=== PATIENT | male | born 1945 | race Caucasian/White ===

== ENCOUNTER 2021-09-06 19:16 | Observation (INO) | payer OTHER ==
[2021-09-06] MEDS ORDERED: NA CHLORIDE 0.9% 500 ML ONE (19:45)
[2021-09-06 20:18] LABS: Absolute Lymphocytes (CBC) 1.4 K/uL (0.7-4.9); Hematocrit 41.2 % (39.6-49.0); Lymphocytes % 22.7 % (15.3-44.8); MCV 91.4 fL (80-100); MPV 7.2 fL (7.6-11.3); RBC Red Blood Cell Count 4.51 M/uL (4.33-5.43)
--- NOTE | 2021-09-06 20:26 | RAD REPORT ---
EXAM DESCRIPTION: RAD - Chest Single View - 09/06/2021 8:14 pm CLINICAL HISTORY: near syncope Chest pain. COMPARISON: Chest Pa And Lat (2 Views) dated 11/04/2020 FINDINGS: Portable technique limits examination quality. The lungs are grossly clear. The heart is normal in size. No displaced fractures. IMPRESSION: No acute intrathoracic process suspected.
[2021-09-06 20:28] LABS: Protime INR 1.14
[2021-09-06 20:37] LABS: Potassium 3.8 mmol/L (3.5-5.1); Troponin High Sensitivity 6.2 pg/mL (<58.9)
--- NOTE | 2021-09-06 21:06 | RAD REPORT ---
EXAM DESCRIPTION: CT - Head Brain Wo Cont - 09/06/2021 8:57 pm CLINICAL HISTORY: near syncope, hx of TIA Headache, drowsiness, near-syncope COMPARISON: No comparisons TECHNIQUE: All CT scans are performed using dose optimization technique as appropriate and may inclu de automated exposure control or mA/KV adjustment according to patient size. FINDINGS: No intracranial hemorrhage, hydrocephalus or extra-axial fluid collection.Mild to moderate generalized brain atrophyNo areas of brain edema or evidence of midline shift. The paranasal sinuses and mastoids are clear. The calvarium is intact. IMPRESSION: No acute intracranial abnormality.
[2021-09-06 21:17] LABS: Urine Blood Negative (Negative); Urine Glucose Negative (Negative); Urine Protein Negative (Negative); Urine Specific Gravity 1.015 (1.005-1.030)
[2021-09-06 21:45] LABS: Urine Bacteria <20 /HPF (NONE SEEN); Urine RBC NONE SEEN /HPF (NONE SEEN)
--- NOTE | 2021-09-06 21:45 | ER ---
Nurse's Notes [facility] Name: Dany Hoang Jr Age: 76 yrs Sex: Male : 1945 Arrival Date: 09/06/2021 Time: 19:23 Bed 15 Private MD: Diagnosis: Syncope Near;Dehydration;Muscle weakness (generalized) Presentation: 09/06 19:23 Chief complaint: EMS states: toned out for near syncopal episodes. pt states he had a lg3 several episode of generalized weakness today. first episode being this morning. it resolved but had another similar episode this after noon and then again about an hour LIGHT BULB TESTER. denies any LOC. EMS states that pt had an episode of v tach and v fib shortly after getting patient into ambulance but converted shortly after. Coronavirus screen: Client denies travel out of the [place] in the last 14 days. At this time, the client does not indicate any symptoms associated with coronavirus-19. Ebola Screen: No symptoms or risks identified at this time. Initial Sepsis Screen: Does the patient meet any 2 criteria? No. Patient's initial sepsis screen is negative. Does the patient have a suspected source of infection? No. Patient's initial sepsis screen is negative. Risk Assessment: Do you want to hurt yourself or someone else? Patient reports no desire to harm self or others. Onset of symptoms was September 06, 2021. 19:23 Method Of Arrival: EMS: [facility] lg3 19:23 Acuity: ZAFAR 3 lg3 Triage Assessment: 19:28 General: Appears in no apparent distress. comfortable, Behavior is calm, cooperative. lg3 Pain: Denies pain. EENT: No deficits noted. No signs and/or symptoms were reported regarding the EENT system. Neuro: No deficits noted. Level of Consciousness is awake, alert, obeys commands, Oriented to person, place, time, situation. Cardiovascular: No deficits noted. Denies chest pain, shortness of breath, Capillary refill < 3 seconds Clubbing of nail beds is absent JVD is absent Patient's skin is warm and dry. Rhythm is sinus rhythm. Respiratory: No deficits noted. Airway is patent Trachea midline Respiratory effort is even, unlabored, Respiratory pattern is regular, symmetrical, Breath sounds are clear bilaterally. GI: No deficits noted. No signs and/or symptoms were reported involving the gastrointestinal system. Abdomen is flat, non-distended, Abd is soft and non tender X 4 quads. : No deficits noted. No signs and/or symptoms were reported regarding the genitourinary system. Derm: No deficits noted. No signs and/or symptoms reported regarding the dermatologic system. Skin is intact, is healthy with good turgor, Skin is dry, Skin temperature is warm. Musculoskeletal: No deficits noted. No signs and/or symptoms reported regarding the musculoskeletal system. Circulation, motion, and sensation intact. Range of motion: intact in all extremities, Reports generalized weakness. Historical: - Allergies: 19:28 No Known Allergies; lg3 - Home Meds: 19:28 Plavix Oral [Active]; levothyroxine oral [Active]; Lipitor Oral [Active]; lg3 - PMHx: 19:28 a fib; right bundle branch block; mini stroke; high cholesterol; thyroid; lg3 - PSHx: 19:28 None; lg3 - Immunization history:: Adult Immunizations up to date, Client reports having NOT received the Covid vaccine. - Social history:: Smoking status: Patient denies any tobacco usage or history of. Patient/guardian denies using alcohol, street drugs. - Family history:: not pertinent. - Hospitalizations: : No recent hospitalization is reported. Screenin:35 Abuse screen: Denies threats or abuse. Denies injuries from another. Nutritional lg3 screening: No deficits noted. Tuberculosis screening: No symptoms or risk factors identified. Fall Risk None identified. Assessment: 19:35 General: see triage assessment . lg3 21:17 Reassessment: Patient appears in no apparent distress at this time. No changes from lg3 previously documented assessment. Patient and/or family updated on plan of care and expected duration. Pain level reassessed. Patient is alert, oriented x 3, equal unlabored respirations, skin warm/dry/pink. 23:43 Reassessment: Patient appears in no apparent distress at this time. No changes from lg3 previously documented assessment. Patient and/or family updated on plan of care and expected duration. Pain level reassessed. Patient is alert, oriented x 3, equal unlabored respirations, skin warm/dry/pink. Patient states feeling better. Vital Signs: 19:23 BP 165 / 86; Pulse 67; Resp 19 S; Temp 98.2(O); Pulse Ox 98% on R/A; Weight 74.84 kg lg3 (R); Height 5 ft. 7 in. (170.18 cm) (R); Pain 0/10; 21:17 BP 158 / 87; Pulse 61; Resp 16 S; Pulse Ox 97% on R/A; lg3 19:23 Body Mass Index 25.84 (74.84 kg, 170.18 cm) lg3 ED Course: 19:23 Patient arrived in ED. rn 19:23 Casey Madrigal MD is Attending Physician. rn 19:23 Anca Arango, OLGA is Primary Nurse. lg3 19:28 Triage completed. lg3 19:28 Arm band placed on right wrist. lg3 19:35 Patient has correct armband on for positive identification. Placed in gown. Bed in low lg3 position. Call light in reach. Side rails up X2. Client placed on continuous cardiac and pulse oximetry monitoring. NIBP monitoring applied. oyster cultivator on. Door closed. Noise minimized. Warm blanket given. Family accompanied patient. 19:35 Maintain EMS IV. Dressing intact. Good blood return noted. Site clean \\T\\ dry. Gauge \\T\\ lg 3 site: 20G left AC. 20:05 Basic Metabolic Panel Sent. lg3 20:05 CBC with Diff Sent. lg3 20:05 NT PRO-BNP Sent. lg3 20:05 PT-INR Sent. lg3 20:05 Troponin HS Sent. lg3 20:05 COVID swab sent to lab. wm 20:05 Inserted saline lock: 20 gauge in left forearm, using aseptic technique. Blood lg3 collected. 20:06 SARS-COV-2 RT PCR (Document "Date of Onset" if Symptomatic) Sent. wm 20:15 XRAY Chest (1 view) In Process Unspecified. EDMS 20:59 CT Head Brain wo Cont In Process Unspecified. EDMS 21:16 Urine Microscopic Only Sent. lg3 21:44 Esa Peace MD is Hospitalizing Provider. rn 09/07 00:34 No provider procedures requiring assistance completed. Patient admitted, IV remains in lg3 place. intact, No redness/swelling at site. Administered Medications: 09/06 20:05 Drug: NS 0.9% 500 ml Route: IV; Rate: bolus; Site: left forearm; lg3 21:16 Follow up: IV Status: Completed infusion; IV Intake: 500ml lg3 Medication: 09/07 00:35 VIS not applicable for this client. lg3 Intake: 09/06 21:16 IV: 500ml; Total: 500ml. lg3 Outcome: 21:45 Decision to Hospitalize by Provider. olga 09/07 00:34 Admitted to Med/surg accompanied by tech, via wheelchair, room 204, Report called to 3 Tamara Condition: stable Instructed on the need for admit, Demonstrated understanding of instructions. 01:07 Patient left the ED. vc1 Signatures: Dispatcher [employer] EDMS Casey Madrigal MD MD rn Gibson, Lacie, RN RN lg3 Monica Jimenez Vanessa RN RN vc1
--- NOTE | 2021-09-06 21:45 | EDPHYS ---
Physician Documentation [facility] Name: Dany Hoang Jr Age: 76 yrs Sex: Male : 1945 Arrival Date: 09/06/2021 Time: 19:23 Bed 15 Private MD: ED Physician Casey Madrigal HPI: 09/06 20:15 This 76 yrs old Male presents to ER via EMS with complaints of near syncope, rn generalized weakness. 20:15 The patient has experienced near-syncope. Onset: The symptoms/episode began/occurred rn this morning. Duration: The patient has had multiple episodes. Context: occurred at home, occurred while the patient was at rest. Associated injury: The patient did not suffer any apparent associated injury. Current symptoms: generalized weakness. The patient has not experienced similar symptoms in the past. The patient has not recently seen a physician. Pt reports 2 episodes since this AM, woke up and felt "weak all over", lasted less than 1 minute, felt lightheaded and dizzy. Got better on its own, but happened again about 1 hour prior to arrival. Was seated and at rest, felt generalized weakness, malaise, tried to walk it off but felt like might pass out, was using wall as brace, sat back down and didn't go away, called 911. EMS does report an episode of Vtach on their monitor, had to stop on side of road, placed on pads, shortly resolved without intervention.. Historical: - Allergies: 19:28 No Known Allergies; lg3 - Home Meds: 19:28 Plavix Oral [Active]; levothyroxine oral [Active]; Lipitor Oral [Active]; lg3 - PMHx: 19:28 a fib; right bundle branch block; mini stroke; high cholesterol; thyroid; lg3 - PSHx: 19:28 None; lg3 - Immunization history:: Adult Immunizations up to date, Client reports having NOT received the Covid vaccine. - Social history:: Smoking status: Patient denies any tobacco usage or history of. Patient/guardian denies using alcohol, street drugs. - Family history:: not pertinent. - Hospitalizations: : No recent hospitalization is reported. ROS: 20:15 Constitutional: Negative for fever, chills, and weight loss, Eyes: Negative for injury, rn pain, redness, and discharge, Neck: Negative for injury, pain, and swelling, Cardiovascular: Negative for chest pain, palpitations, and edema, Respiratory: Negative for shortness of breath, cough, wheezing, and pleuritic chest pain, Abdomen/GI: Negative for abdominal pain, nausea, vomiting, diarrhea, and constipation, Back: Negative for injury and pain, MS/Extremity: Negative for injury and deformity, Skin: Negative for injury, rash, and discoloration, Neuro: Negative for headache, numbness, tingling, and seizure. Exam: 20:15 Constitutional: This is a well developed, well nourished patient who is awake, alert, rn and in no acute distress. Head/Face: Normocephalic, atraumatic. Eyes: Periorbital areas with no swelling, redness, or edema. ENT: dry MM Cardiovascular: Regular rate and rhythm. No pulse deficits. Respiratory: No increased work of breathing, no retractions or nasal flaring. Abdomen/GI: Soft, non-tender Skin: Warm, dry MS/ Extremity: Pulses equal, no cyanosis. Neuro: Awake and alert, GCS 15, oriented to person, place, time, and situation. Cranial nerves II-XII grossly intact. Motor strength 5/5 in all extremities. Sensory grossly intact. Cerebellar exam normal. Vital Signs: 19:23 BP 165 / 86; Pulse 67; Resp 19 S; Temp 98.2(O); Pulse Ox 98% on R/A; Weight 74.84 kg lg3 (R); Height 5 ft. 7 in. (170.18 cm) (R); Pain 0/10; 21:17 BP 158 / 87; Pulse 61; Resp 16 S; Pulse Ox 97% on R/A; lg3 19:23 Body Mass Index 25.84 (74.84 kg, 170.18 cm) lg3 MDM: 19:23 Patient medically screened. rn 21:42 Differential Diagnosis: cardiac arrhythmia, emotional response, idiopathic syncope, rn transient ischemic attack, dehydration. Data reviewed: vital signs, nurses notes, lab test result(s), EKG, radiologic studies, CT scan, plain films, and as a result, I will admit patient. Counseling: I had a detailed discussion with the patient and/or guardian regarding: the historical points, exam findings, and any diagnostic results supporting the discharge/admit diagnosis, lab results, radiology results, the need for further work-up and treatment in the hospital. Response to treatment: the patient's symptoms have markedly improved after treatment, and as a result, I will admit patient. Admission orders: after a detailed discussion of the patient's condition and case, the admit orders are written by me. ED course: No signs of arrhythmia here, unclear if actually vtach while on ambulance or misinterpreted, stable vitals and feels better after fluids. Admitted to Dr. Peace, no indication for antiarrhythmics at this time.. 09/06 19:25 Order name: Basic Metabolic Panel; Complete Time: 21:07 rn 09/06 19:25 Order name: CBC with Diff; Complete Time: 20:34 rn 09/06 19:25 Order name: NT PRO-BNP; Complete Time: 21: rn 09/06 19:25 Order name: PT-INR; Complete Time: 20:34 rn 09/06 19:25 Order name: Troponin HS; Complete Time: 21: rn 09/06 19:25 Order name: SARS-COV-2 RT PCR (Document "Date of Onset" if Symptomatic); Complete Time: rn 21:09/06 19:25 Order name: XRAY Chest (1 view); Complete Time: 20:34 rn 09/06 19:25 Order name: EKG; Complete Time: 19:26 rn 09/06 19:25 Order name: Cardiac monitoring; Complete Time: 19:37 rn 09/06 19:25 Order name: EKG - Nurse/Tech; Complete Time: 19:36 rn 09/06 19:25 Order name: CT Head Brain wo Cont; Complete Time: 21:08 rn 09/06 19:25 Order name: Urine Microscopic Only; Complete Time: 21:52 rn 09/06 21:17 Order name: Urine Dipstick-Ancillary; Complete Time: 21:52 EDMS 09/06 19:25 Order name: IV Saline Lock; Complete Time: 19:44 rn 09/06 19:25 Order name: Labs collected and sent; Complete Time: 20:05 rn 09/06 19:25 Order name: O2 Per Protocol; Complete Time: 19:45 rn 09/06 19:25 Order name: O2 Sat Monitoring; Complete Time: 19:45 rn 09/06 19:25 Order name: Urine Dipstick-Ancillary (obtain specimen); Complete Time: 21:16 rn Administered Medications: 20:05 Drug: NS 0.9% 500 ml Route: IV; Rate: bolus; Site: left forearm; lg3 21:16 Follow up: IV Status: Completed infusion; IV Intake: 500ml lg3 Disposition Summary: 09/06/21 21:45 Hospitalization Ordered Hospitalization Status: Observation rn Provider: Esa Peace rn Location: Telemetry/MedSurg (observation) rn Condition: Stable rn Problem: new rn Symptoms: have improved rn Bed/Room Type: Standard rn Room Assignment: 204(09/06/21 22:38) mw Diagnosis - Syncope Near rn - Dehydration rn - Muscle weakness (generalized) rn Forms: - Medication Reconciliation Form rn - SBAR form rn Signatures: Dispatcher [employer] Angie Pratt RN RN Casey Tomas MD MD rn Gibson, Lacie, RN RN lg3 Corrections: (The following items were deleted from the chart) 22:38 21:45 rn mw
[2021-09-07] MEDS ORDERED: ONDANSETRON 4 MG/2 ML VIAL IV PRN (01:14)
[2021-09-07] MEDS ORDERED: NA CHLORIDE 0.9% 1,000 ML IV SCH ×2 (01:14→06:38)
[2021-09-07 01:33] VITALS: O2SAT 97
[2021-09-07 01:35] VITALS: BMI 26.6
[2021-09-07 06:15] LABS: Absolute Lymphocytes (CBC) 1.7 K/uL (0.7-4.9); Hematocrit 41.8 % (39.6-49.0); Lymphocytes % 28.5 % (15.3-44.8); MCV 91.8 fL (80-100); MPV 7.4 fL (7.6-11.3); RBC Red Blood Cell Count 4.56 M/uL (4.33-5.43)
[2021-09-07 06:30] LABS: Potassium 4.1 mmol/L (3.5-5.1)
[2021-09-07] MEDS ORDERED: LEVOTHYROXINE SOD 0.025 MG TAB PO SCH (07:00)
[2021-09-07] MEDS ORDERED: CLOPIDOGREL 75 MG TABLET PO SCH (09:00)
[2021-09-07] MEDS ORDERED: ATORVASTATIN 10 MG TAB PO SCH (09:00)
[2021-09-07] MEDS ORDERED: NA CHLORIDE 0.9% 1,000 ML ONE (09:33)
--- NOTE | 2021-09-07 11:06 | EKG ---
Test Date: 2021-09-07 Test Time: 09:10:40 Private Advisor: CASSANDRA MEASUREMENT RESULTS: Intervals: Rate: 58 VA: 160 QRSD: 134 QT: 450 QTc: 441 Emmet: P: 68 VA: 160 QRS: 8 T: 45 INTERPRETIVE STATEMENTS: Sinus bradycardia Right bundle branch block Abnormal ECG Compared to ECG 09/06/2021 19:30:22 Sinus rhythm no longer present Electronically Signed On 09-07-21 11:05:28 CDT by Fred Allen
--- NOTE | 2021-09-07 11:07 | EKG ---
Test Date: 2021-09-06 Test Time: 19:30:22 Curriculum Designer: MEASUREMENT RESULTS: Intervals: Rate: 63 IA: 162 QRSD: 146 QT: 446 QTc: 456 Hecker: P: 64 IA: 162 QRS: 10 T: 45 INTERPRETIVE STATEMENTS: Normal sinus rhythm Possible Left atrial enlargement Right bundle branch block Abnormal ECG No previous ECG available for comparison Electronically Signed On 09-07-21 11:06:14 CDT by Fred Allen
[2021-09-07 12:11] VITALS: TEMP 96.9
--- NOTE | 2021-09-07 13:01 | P.SSS ---
Patient History Date of Service: 09/07/21 Reason for admission: SEVERE DIZZINESS. ABN RHYTHM History of Present Illness: MR. CM HAD TWO EPISODES OF SEVERE DIZZINESS AND WAS BROUGHT TO ER BY AMBULANCE. EMT CREW WATCHED RAPID WIDE TACHYCARDIA BUT COULD NOT RECORD IT. THIS IS WHY WE HAVE HIM HERE AT [facility] FOR [facility]. Allergies No Known Allergies Allergy (Unverified 09/07/21 00:38) Home medications list reviewed: Yes Home Medications: Atorvastatin Calcium [Lipitor] 10 mg PO DAILY 09/07/21 Clopidogrel Bisulfate [Plavix] 75 mg PO DAILY 09/07/21 Levothyroxine Sodium [Levothyroxine] 25 mcg PO DAILY 09/07/21 - Past Medical/Surgical History Has patient received pneumonia vaccine in the past: Yes Diabetic: No -: A fib -: Right bundle branch block -: Mini stroke -: hypothyroidism -: Hernia repair - Social History Smoking Status: Never smoker Place of Residence: Home Review of Systems 10-point ROS is otherwise unremarkable Physical Examination - Vital Signs Temperature: 96.9 F Blood Pressure: 143/70 Pulse: 52 Respirations: 14 Pulse Ox (%): 97 - Physical Exam General: Alert, In no apparent distress HEENT: Atraumatic, PERRLA, Mucous membr. moist/pink, EOMI, Sclerae nonicteric Neck: Supple, 2+ carotid pulse no bruit, No LAD, Without JVD or thyroid abnormality Respiratory: Clear to auscultation bilaterally, Normal air movement Cardiovascular: Regular rate/rhythm, Normal S1 S2 Gastrointestinal: Normal bowel sounds, No tenderness Musculoskeletal: No tenderness Integumentary: No rashes Neurological: Normal gait, Normal speech, Normal strength at 5/5 x4 extr, Normal tone, Normal affect Lymphatics: No axilla or inguinal lymphadenopathy - Studies Laboratory Data (last 24 hrs) 09/06/21 19:58: PT 12.6 H, INR 1.14 09/06/21 19:58: WBC 6.1, Hgb 13.8, Hct 41.2, Plt Count 261 09/06/21 19:58: Sodium 139, Potassium 3.8, BUN 11, Creatinine 0.74, Glucose 134 H - Diagnosis (Problem(s)) (1) Vertiginous syndrome Current Visit: Yes Status: Acute Plan: THIS MAY OR MAY NOT BE RELATED TO VASCULAR SYSTEM. MRI STROKE PROTOCOL ORDERED. MECLIZINE PO TID. (2) History of CVA (cerebrovascular accident) Current Visit: Yes Status: Acute Plan: THIS OLD AND HE HAS BEEN FULLY EVALUATED BEFORE. (3) Wide-complex tachycardia Current Visit: Yes Status: Acute Plan: NOT DOCUMENTED SO FAR. EMT MAY HAVE SEEN THIS. HE MAY NEED EPS EVAL IN [place]. WILL TALK TO DR. ROTH. - Disposition Disposition: ROUTINE DISCHARGE
[2021-09-07] MEDS ORDERED: MECLIZINE HCL 12.5 MG TAB PO SCH (14:00)
--- NOTE | 2021-09-07 14:24 | RAD REPORT ---
EXAM DESCRIPTION: MRI - Brain W/Wo Cont - 09/07/2021 2:11 pm CLINICAL HISTORY: POSTERIOR ISCHEMIA Headache, drowsiness, CVA symptomology COMPARISON: MRA Head Wo Cont dated 09/07/2021 TECHNIQUE: Multi-sequence, multiplanar MR imaging of the brain was performed with contrast. FINDINGS: No intracranial hemorrhage, hydrocephalus, or extra-axial fluid collection.Minimal chronic periventricular microvascular ischemic changes. No edema or shift of midline structures. No intracra nial mass. DWI is negative for acute CVA. The midline structures are normally formed. Mastoid air cells and paranasal sinuses are clear. Post-contrast images show no abnormal enhancement to suggest tumor or infection. IMPRESSION: Negative for acute CVA or other acute intracranial process. No pathologic post-contrast enhancement suspected.
--- NOTE | 2021-09-07 14:26 | RAD REPORT ---
EXAM DESCRIPTION: MRI - MRA Head Wo Cont - 09/07/2021 2:11 pm CLINICAL HISTORY: near syncope CVA COMPARISON: Head Brain Wo Cont dated 09/06/2021; Chest Single View dated 09/06/2021 FINDINGS: 3D noncontrast [id number] MR angiography of the [place] was performed. No aneurysm, flow-limiting stenosis or vascular malformation is seen. Forward flow seen in codominant vertebral arteries. The visualized dural venous sinuses appear patent. IMPRESSION: No significant flow abnormality of the [place] is identified.
--- NOTE | 2021-09-07 14:28 | RAD REPORT ---
EXAM DESCRIPTION: MRI - MRA Neck W/Wo Cont - 09/07/2021 2:11 pm CLINICAL HISTORY: near syncope Headache, drowsiness, syncope COMPARISON: No comparisons FINDINGS: Contrast enhance 2D [id number] MR angiography of the neck vessels was performed. Left aortic arch is present. Normal branching pattern of the great vessels seen. Common carotid arter ies and subclavian arteries are patent. Moderate stenosis is seen involving proximal right internal carotid artery estimated at 80-90% based on NASCET criteria. No significant left-sided carotid stenosis identified. Antegrade flow is seen in both vertebral arteries. 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
--- NOTE | 2021-09-07 15:38 | CON ---
Reason For Consultation: Near syncope. History Of Present Illness: This is a 76-year-old male, who presented to the hospital with near sync opal symptoms. He was initially in a standing position, felt confused, and lost his balance slightly and then he sat down in a recliner. After that, he tried to get up and move, but felt lightheaded a nd dizzy, so he went through a route that he was not sure why he is going there. He sat back and sat down, called 911 and then the EMS reported an episode of V-tach on the monitor that has resolved on its own. The patient since hospitalization has been doing very well. Past Medical History: Atrial fibrillation, dyslipidemia, hypothyroidism, hypertension. Medications: Refer to reconciliation sheet for detailed list. Allergies: NO KNOWN DRUG ALLERGIES. Family History: No premature coronary artery disease or cancer. Social History: Does not smoke or drink. Does not use any drugs. Review of Systems: All systems reviewed and they were negative except for what mentioned in HPI. Physical Examination: Vital Signs: Temperature is 96.9, pulse 52, breathing 14, blood pressure 143/70, saturating 97% on r oom air. General: Pleasant, elderly male, in no apparent distress. Head and Neck: Pupils are equal, reactive to light. Intact eye movements. No JVD. No cervical lym phadenopathy. Neck is supple. Thyroid is not enlarged. Lungs: Clear to auscultation bilaterally. No rhonchi, wheezing, or crackles. No accessory muscle u se. Heart: Irregular. No extra sounds. Abdomen: Soft, nontender. Bowel sounds positive. No organomegaly. No masses or hernia. No rigidi ty or rebound. Extremities: No edema, clubbing, or cyanosis. Intact pulses. Skin: No rash. Neurologic: Alert, awake, oriented x3. No acute focal deficits appreciated. Investigations: Hemoglobin 14.2, white blood count 6.1, and his BUN is 9, creatinine 0.69. Troponin x3 are negative. NT-proBNP is negative. Assessment And Recommendations: 1.Questionable near syncope versus confusion symptoms suggestive of possible transient ischemic tete ck versus mini-stroke. Recommend MRI of the brain to further evaluate and based on MRI results, furt her recommendations to follow. 2.Questionable episode of ventricular tachycardia. We will try to obtain the strips. Cardiac enzym es are totally negative. Please obtain an echocardiogram and keep the patient on classroom monitor t o make sure his potassium is above 4 and magnesium level is above 2. Thank you for the consult. HERNAN Voice ID: [id number] Report ID: [id number]
[2021-09-07 16:11] VITALS: BP 138/62
== END 2021-09-07 20:10 | disposition home or self-care (01) ==
LOC: ER 19:16 → ERHOLD 23:05 → 2ND 09-07 00:12
PROVIDERS: ADMIT Internal Medicine; ATTEND Internal Medicine
DX: H81.90 Unspecified disorder of vestibular function, unspecified ear (principal); R00.0 Tachycardia, unspecified; I48.91 Unspecified atrial fibrillation; I45.10 Unspecified right bundle-branch block; E86.0 Dehydration; I10 Essential (primary) hypertension; E78.5 Hyperlipidemia, unspecified; E03.9 Hypothyroidism, unspecified; E78.00 Pure hypercholesterolemia, unspecified; M62.81 Muscle weakness (generalized); Z86.73 Personal history of transient ischemic attack (TIA), and cerebral infarction without residual deficits; Z79.02 Long term (current) use of antithrombotics/antiplatelets; Z79.82 Long term (current) use of aspirin; Z28.310 Unvaccinated for COVID-19; Z20.822 Contact with and (suspected) exposure to COVID-19
CPT/HCPCS: 93005 ×2; 85025 ×2; 80048 ×2; 36415; 85610; 84484 ×3; 83880; 70450; 71045; 70553; 70544; 70549; U0003; A9577; J8597; J7040; J7030 ×2; G0378 ×2; 81003; 81015; 96360; 99285

== ENCOUNTER 2023-07-12 11:26 | Emergency (ER) | payer OTHER ==
[2023-07-12] MEDS ORDERED: NA CHLORIDE 0.9% 1,000 ML ONE (13:28)
[2023-07-12 13:34] LABS: Absolute Eosinophils 0.2 K/uL (0-0.5); Absolute Lymphocytes (CBC) 1.4 K/uL (0.7-4.9); Absolute Monocytes 0.5 K/uL (0.1-1.3); Absolute Neutrophil 5.1 K/uL (1.8-8.0); Basophils % 0.5 % (0-1.3); Eosinophils % 2.9 % (0-4.4); Hematocrit 43.8 % (39.6-49.0); Hemoglobin 14.5 g/dL (13.6-17.9); Lymphocytes % 19.8 % (15.3-44.8); MCH 30.5 pg (27.0-35.0); MCHC 33.1 g/dL (32.0-36.0); MPV 7.8 fL (7.6-11.3); Monocytes % 6.3 % (3.3-12.3); Neutrophils % 70.5 % (41.7-73.7); Platelets 271 thou/uL (152-406); RBC Red Blood Cell Count 4.76 M/uL (4.33-5.43); Red Cell Distribution Width 13.7 % (12.1-15.2)
[2023-07-12 13:47] LABS: PT Prothrombin Time 11.9 SECONDS (9.5-12.5); Protime INR 1.08
[2023-07-12 13:59] LABS: ALT/SGPT 19 U/L (16-61); AST/SGOT 14 U/L (15-37); Albumin 3.8 g/dL (3.4-5.0); Albumin/Globulin Ratio 1.2 (1.1-1.8); Alkaline Phosphatase 95 U/L (45-117); BUN Blood Urea Nitrogen 9 mg/dL (7-18); Bicarbonate 29 mEq/L (21-32); Bilirubin Total 0.5 mg/dL (0.2-1.0); Globulin 3.2 g/dL (2.3-3.5); Glomerular Filtration Rate 91 ml/min (=/>90); Glucose Level 100 mg/dL (74-106); Lipase 23 U/L (13-75); Magnesium 2.2 mg/dL (1.6-2.4); NT PRO-BNP 329 pg/mL (<450); Sodium Level 138 mEq/L (136-145); Troponin High Sensitivity 6.2 pg/mL (<58.9)
[2023-07-12 14:03] LABS: Bilirubin Direct < 0.2 mg/dL (0-0.2); Bilirubin Indirect, Calculated 0.3 mg/dL (0.2-0.8)
[2023-07-12] MEDS ORDERED: KETOROLAC 30 MG/ML INJ ONE (14:12)
[2023-07-12] MEDS ORDERED: ONDANSETRON 4 MG/2 ML VIAL ONE (14:12)
[2023-07-12] MEDS ORDERED: MORPHINE 4 MG/ML SYR ONE (14:13)
--- NOTE | 2023-07-12 15:40 | RAD REPORT ---
EXAM DESCRIPTION: CT - Chest Abdomen Pelvis W Cont - 07/12/2023 2:26 pm CLINICAL HISTORY: PAIN COMPARISON: No comparisons TECHNIQUE: Thin axial CT images of the chest, abdomen, and pelvis, performed following intravenous a dministration of 100mL Isovue-300. Multiplanar reformats were generated and reviewed. All CT scans are performed using dose optimization technique as appropriate and may include automated exposure control or mA/KV adjustment according to patient size. FINDINGS: The lungs are clear apart from subsegmental right basilar atelectatic changes.No pleural o r pericardial effusion. 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 No intrathoracic adenopathy. The liver, spleen, pancreas, adrenal glands and kidneys are within normal limits. No bowel obstruction, free air, free fluid or abscess. Numerous hepatic fluid density cystic lesions, largest is in the left lobe measuring 2.5 cm. Many of these are below 1 cm in size, therefore diffic ult to characterize. Multiple exophytic bilateral renal fluid density cysts, largest measuring 3.8 cm . Large cholesterol containing stone near the neck of the gallbladder. Appendix is unremarkable. Smal l left inguinal hernia containing fat. Mild prostatomegaly with calcifications. Small fusiform aneury sms of the iliac vessels, largest is present along the right common iliac artery measuring 2.5 cm in caliber, demonstrating a degree of mural thrombosis. No pathologic lymphadenopathy in the abdomen or pelvis. No worrisome osseous finding. IMPRESSION: No acute abnormality in the chest, abdomen, or pelvis. 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
--- NOTE | 2023-07-12 16:04 | EDPHYS ---
Physician Documentation [facility] Name: Dany Hoang Jr Age: 78 yrs Sex: Male : 1945 Arrival Date: 07/12/2023 Time: 11:26 Bed 11 Private MD: ED Physician Freddy Naranjo HPI: 07/11 14:13 This 78 yrs old Male presents to ER via Wheelchair with complaints of Back chase Pain. 14:13 The patient presents with pain that is acute, with no known mechanism of injury. The chase symptoms are located in the low back, right mid back and right low back. Onset: The symptoms/episode began/occurred yesterday. The pain does not radiate. Associated signs and symptoms: The patient has no apparent associated signs or symptoms. The problem was sustained from unknown cause. Modifying factors: The patient symptoms are alleviated by nothing, remaining still, the patient symptoms are aggravated by any movement, bending, movement. Severity of symptoms: At their worst the symptoms were moderate, in the emergency department the symptoms are unchanged. The patient has not experienced similar symptoms in the past. Historical: - Allergies: 11:40 No Known Allergies; ph - PMHx: 11:40 a fib; High Cholesterol; mini stroke; right bundle branch block; thyroid; ph - Immunization history:: Adult Immunizations. - Infectious Disease History:: Denies. - Social history:: Smoking status: Patient denies any tobacco usage or history of. ROS: 14:15 Constitutional: Negative for fever, chills, and weight loss, Eyes: Negative for injury, chase pain, redness, and discharge, ENT: Negative for injury, pain, and discharge, Neck: Negative for injury, pain, and swelling, Cardiovascular: Negative for chest pain, palpitations, and edema, Respiratory: Negative for shortness of breath, cough, wheezing, and pleuritic chest pain, Abdomen/GI: Negative for abdominal pain, nausea, vomiting, diarrhea, and constipation, MS/Extremity: Negative for injury and deformity, Skin: Negative for injury, rash, and discoloration, Neuro: Negative for headache, weakness, numbness, tingling, and seizure, Psych: Negative for depression, anxiety, suicide ideation, homicidal ideation, and hallucinations, Allergy/Immunology: Negative for hives, rash, and allergies, Endocrine: Negative for neck swelling, polydipsia, polyuria, polyphagia, and marked weight changes, 14:15 Back: Positive for decreased range of motion, pain at rest, of the right low back, Exam: 14:16 Constitutional: This is a well developed, well nourished patient who is awake, alert, chase and in no acute distress. Head/Face: Normocephalic, atraumatic. Eyes: Pupils equal round and reactive to light, extra-ocular motions intact. Lids and lashes normal. Conjunctiva and sclera are non-icteric and not injected. Cornea within normal limits. Periorbital areas with no swelling, redness, or edema. ENT: Nares patent. No nasal discharge, no septal abnormalities noted. Tympanic membranes are normal and external auditory canals are clear. Oropharynx with no redness, swelling, or masses, exudates, or evidence of obstruction, uvula midline. Mucous membranes moist. Neck: Trachea midline, no thyromegaly or masses palpated, and no cervical lymphadenopathy. Supple, full range of motion without nuchal rigidity, or vertebral point tenderness. No Meningismus. Chest/axilla: Normal chest wall appearance and motion. Nontender with no deformity. No lesions are appreciated. Cardiovascular: Regular rate and rhythm with a normal S1 and S2. No gallops, murmurs, or rubs. Normal PMI, no JVD. No pulse deficits. Respiratory: Lungs have equal breath sounds bilaterally, clear to auscultation and percussion. No rales, rhonchi or wheezes noted. No increased work of breathing, no retractions or nasal flaring. Abdomen/GI: Soft, non-tender, with normal bowel sounds. No distension or tympany. No guarding or rebound. No evidence of tenderness throughout. Male : Normal genitalia with no discharge or lesions. Skin: Warm, dry with normal turgor. Normal color with no rashes, no lesions, and no evidence of cellulitis. MS/ Extremity: Pulses equal, no cyanosis. Neurovascular intact. Full, normal range of motion. Neuro: Awake and alert, GCS 15, oriented to person, place, time, and situation. Cranial nerves II-XII grossly intact. Motor strength 5/5 in all extremities. Sensory grossly intact. Cerebellar exam normal. Normal gait. Psych: Awake, alert, with orientation to person, place and time. Behavior, mood, and affect are within normal limits. 14:16 Back: pain, that is mild, that is moderate, ROM is painful, with flexion, with extension, normal spinal alignment noted, CVA tenderness, that is mild, vertebral tenderness, is not appreciated, 14:16 Neuro: Orientation: is normal, Mentation: is normal, appropriate for stated age, no acute changes, Memory: is normal, appropriate for stated age, no acute changes, Cranial nerves: grossly normal, Cerebellar function: is grossly normal, is grossly normal based on the patient's age, no acute changes, Motor: unable to test, Sensation: is normal, no obvious gross deficits, appropriate Gait: not tested. seizure activity, is not displayed by the patient, Vital Signs: 11:38 BP 138 / 95; Pulse 77; Resp 18; Temp 97.5; Pulse Ox 96% on R/A; Weight 72.57 kg; Height ph 5 ft. 7 in. ; 13:35 BP 141 / 95; Pulse 85; Resp 16; Pulse Ox 98% on R/A; Pain 10/10; me1 14:30 BP 148 / 78; Pulse 54; Resp 16; Pulse Ox 97% on R/A; me1 14:52 Pain 6/10; me1 14:53 Pain 6/10; me1 14:53 Pain 5/10; me1 15:30 BP 142 / 78; Pulse 62; Resp 16; Pulse Ox 99% on R/A; Pain 0/10; me1 16:30 BP 125 / 64; Pulse 55; Resp 16; Pulse Ox 99% on R/A; me1 11:38 Body Mass Index 25.06 (72.57 kg, 170.18 cm) ph 13:35 Pain Scale: Adult me1 14:52 Pain Scale: Adult me1 14:53 Pain Scale: Adult me1 14:53 Pain Scale: Adult me1 15:30 Pain Scale: Adult me1 MDM: 11:47 Patient medically screened. chase 14:19 Differential diagnosis: arthritis, chronic back pain, Fatigue Fracture Ligament Injury chase Obesity Osteoporosis Pyelonephritis Renal Infarction ruptured disc, Scoliosis sprain, Ureterolithiasis vertebral fracture. Data reviewed: vital signs, nurses notes, lab test result(s), EKG, radiologic studies, CT scan, plain films. Consideration of Admission/Observation Escalation of care including admission/observation considered. I considered the following discharge prescriptions or medication management in the emergency department Medications were administered in the Emergency Department. See MAR. Independent interpretation of the following test(s) in the Emergency Department EKG: See my EKG interpretation above CT Scan: My interpretation is ct chest , abd , pel. Historians other than the Patient: Spouse/Significant Other: well informed. Care significantly affected by the following chronic conditions: Hypertension, Obesity, thyroid, a fib, cva. 07/11 11:50 Order name: Basic Metabolic Panel; Complete Time: 14:06 [facility] 07/11 11:50 Order name: CBC with Diff; Complete Time: 13:37 [facility] 07/11 11:50 Order name: LFT's; Complete Time: 14:06 [facility] 07/11 11:50 Order name: Magnesium; Complete Time: 14:06 [facility] 07/11 11:50 Order name: NT PRO-BNP; Complete Time: 14:06 [facility] 07/11 11:50 Order name: PT-INR; Complete Time: 13:52 [facility] 07/11 11:50 Order name: Troponin HS; Complete Time: 14:06 [facility] 07/11 11:50 Order name: Lipase; Complete Time: 14:06 [facility] 07/11 11:50 Order name: Urinalysis w/ reflexes 07/11 11:50 Order name: CT Chest, Abdomen, Pelvis - W/Contrast; Complete Time: 15:59 [facility] 07/11 11:50 Order name: Cardiac monitoring; Complete Time: 14:19 [facility] 07/11 11:50 Order name: EKG - Nurse/Tech; Complete Time: 14:19 [facility] 07/11 11:50 Order name: IV Saline Lock; Complete Time: 13:26 [facility] 07/11 11:50 Order name: Labs collected and sent; Complete Time: 13:27 [facility] 07/11 11:50 Order name: O2 Per Protocol; Complete Time: 13:27 [facility] 07/11 11:50 Order name: O2 Sat Monitoring; Complete Time: 13:27 [facility] Administered Medications: 13:33 Drug: NS 0.9% IV 500 ml IV at bolus once Route: IV; Rate: bolus; Site: left antecubital;me1 14:18 Follow up: Response: No adverse reaction; IV Status: Completed infusion; IV Intake: me1 500ml 13:33 Drug: NS 0.9% IV 1000 ml IV at 125 ml/hr continuous Route: IV; Rate: 125 ml/hr; Site: me1 left antecubital; 17:02 Follow up: IV Status: Completed infusion me1 14:18 Drug: morphine IVP or IV 2 mg IVP once over 4 mins Route: IVP; Infused Over: 4 mins; me1 Site: left antecubital; 14:53 Follow up: Pain 6/10 Adult; Response: No adverse reaction; Pain is decreased me1 14:18 Drug: Ondansetron IVP 4 mg IVP once; over 2 minutes Route: IVP; Site: left antecubital; me1 14:52 Follow up: Response: No adverse reaction; Nausea is decreased me1 14:19 Drug: Ketorolac IVP 15 mg IVP once Route: IVP; Site: left antecubital; me1 14:52 Follow up: Pain 6/10 Adult; Response: No adverse reaction; Pain is decreased me1 14:38 Drug: morphine IVP or IV 2 mg IVP once over 4 mins Route: IVP; Infused Over: 4 mins; me1 Site: left antecubital; 14:53 Follow up: Pain 5/10 Adult; Response: No adverse reaction; Pain is decreased me1 16:23 Drug: Decadron - Dexamethasone IVP 10 mg IVP once Route: IVP; Site: left antecubital; me1 16:36 Follow up: Response: No adverse reaction me1 Disposition Summary: 07/12/23 16:04 Discharge Ordered Notes: Location: Home chase Problem: new chase Symptoms: have improved chase Condition: Fair chase Diagnosis - Unspecified symptoms and signs involving the musculoskeletal system chase - Low back pain chase - Other injury of muscle, fascia and tendon of lower back chase Followup: chase - With: Private Physician - When: 2 - 3 days - Reason: Recheck today's complaints, Continuance of care, Re-evaluation by your physician Discharge Instructions: - Discharge Summary Sheet chase - Acute Back Pain, Adult chase - Chronic Back Pain chase - Musculoskeletal Pain chase - Chronic Back Pain, [id number] chase Forms: - Medication Reconciliation Form chase - Antibiotic Education chase - Prescription Opioid Use chase - Patient Portal Instructions chase - Leadership Thank You Letter chase Prescriptions: - acetaminophen-codeine 300-30 mg Oral tablet - take 1 tablet ORAL route every 4-6 hours; 20 tablet; Refills: 0, Product chase Selection Permitted - dexamethasone 4 mg Oral tablet - take 1 tablet ORAL route daily; 4 tablet; Refills: 0, Product Selection [facility] Permitted - diclofenac sodium 50 mg Oral tablet, delayed release (enteric coated) - take 1 tablet ORAL route every 12 hours; 20 tablet; Refills: 0, Product chase Selection Permitted - Cyclobenzaprine 5 mg Oral Tablet - take 1 tablet ORAL route 3 times per day As needed; 15 tablet; Refills: 0, [facility] Product Selection Permitted Signatures: Dispatcher [employer] EDMS Freddy Naranjo MD MD cha Hall, Patricia, RN RN Luisa Madera RN RN me1 Corrections: (The following items were deleted from the chart) 11:50 11:50 Chest Single View+RAD.RAD.BRZ ordered. EDMS EDMS 11:50 11:50 Chest Abdomen Pelvis W Con+CT.RAD.BRZ ordered. EDMS EDMS 13:27 11:50 MAGNESIUM+C.LAB.BRZ ordered. EDMS EDMS
--- NOTE | 2023-07-12 16:04 | ER ---
Nurse's Notes [facility] Name: Dany Hoang Jr Age: 78 yrs Sex: Male : 1945 Arrival Date: 07/12/2023 Time: 11:26 Bed 11 Private MD: Diagnosis: Unspecified symptoms and signs involving the musculoskeletal system;Low back pain;Other injury of muscle, fascia and tendon of lower back Presentation: 07/11 11:38 Chief complaint: Patient states: R low back/upper hip pain x 2 days, denies trauma. ph Coronavirus screen: Vaccine status: Patient reports receiving the 2nd dose of the covid vaccine. Ebola Screen: No symptoms or risks identified at this time. Initial Sepsis Screen: Does the patient meet any 2 criteria? No. Patient's initial sepsis screen is negative. Does the patient have a suspected source of infection? No. Patient's initial sepsis screen is negative. Risk Assessment: Do you want to hurt yourself or someone else? Patient reports no desire to harm self or others. Onset of symptoms was July 12, 2023. 11:38 Method Of Arrival: Wheelchair 11:38 Acuity: ZAFAR 3 aa5 Triage Assessment: 11:40 General: Appears in no apparent distress. Behavior is calm, cooperative. Pain: ph Complains of pain in right low back. Musculoskeletal: Circulation, motion, and sensation intact. Range of motion: intact in all extremities. Historical: - Allergies: 11:40 No Known Allergies; ph - PMHx: 11:40 a fib; High Cholesterol; mini stroke; right bundle branch block; thyroid; ph - Immunization history:: Adult Immunizations. - Infectious Disease History:: Denies. - Social history:: Smoking status: Patient denies any tobacco usage or history of. Screenin:35 [facility] ED Fall Risk Assessment (Adult) History of falling in the last 3 months, me1 including since admission No falls in past 3 months (0 pts) Confusion or Disorientation No (0 pts) Intoxicated or Sedated No (0 pts) Impaired Gait Yes (1 pt) Mobility Assist Device Used No (0 pt) Altered Elimination No (0 pt) Score/Fall Risk Level 0 - 2 = Low Risk Maintained a safe environment, Provided non-skid footwear, Hourly rounding (assess needs \T\ fall precautionary measures) done. Abuse screen: Denies threats or abuse. Nutritional screening: No deficits noted. Tuberculosis screening: No symptoms or risk factors identified. Assessment: 13:35 General: Appears uncomfortable, well groomed, well developed, well nourished, Behavior me1 is calm, cooperative, appropriate for age, Reports R low back/upper hip pain x 2 days, denies trauma. Pain: Complains of pain in back and right low back Pain does not radiate. Pain currently is 10 out of 10 on a pain scale. Quality of pain is described as sharp, Pain began 2-3 days ago. Is continuous, Aggravated by increased activity, movement. Neuro: Level of Consciousness is awake, alert, obeys commands, Oriented to person, place, time, situation, Appropriate for age. Cardiovascular: Capillary refill < 3 seconds Patient's skin is warm and dry. Respiratory: Airway is patent Trachea midline Respiratory effort is even, unlabored, Respiratory pattern is regular, symmetrical. GI: No signs and/or symptoms were reported involving the gastrointestinal system. : No signs and/or symptoms were reported regarding the genitourinary system. EENT: No signs and/or symptoms were reported regarding the EENT system. Derm: Skin is intact, is healthy with good turgor, Skin is pink, warm \T\ dry. Musculoskeletal: Capillary refill < 3 seconds. 16:34 General: Discharge pending UA results. . me1 Vital Signs: 11:38 BP 138 / 95; Pulse 77; Resp 18; Temp 97.5; Pulse Ox 96% on R/A; Weight 72.57 kg; Height ph 5 ft. 7 in. ; 13:35 BP 141 / 95; Pulse 85; Resp 16; Pulse Ox 98% on R/A; Pain 10/10; me1 14:30 BP 148 / 78; Pulse 54; Resp 16; Pulse Ox 97% on R/A; me1 14:52 Pain 6/10; me1 14:53 Pain 6/10; me1 14:53 Pain 5/10; me1 15:30 BP 142 / 78; Pulse 62; Resp 16; Pulse Ox 99% on R/A; Pain 0/10; me1 16:30 BP 125 / 64; Pulse 55; Resp 16; Pulse Ox 99% on R/A; me1 11:38 Body Mass Index 25.06 (72.57 kg, 170.18 cm) ph 13:35 Pain Scale: Adult me1 14:52 Pain Scale: Adult me1 14:53 Pain Scale: Adult me1 14:53 Pain Scale: Adult me1 15:30 Pain Scale: Adult me1 ED Course: 11:30 Patient arrived in ED. mr 11:39 Triage completed. ph 11:40 Arm band placed on Patient placed in waiting room, Patient notified of wait time. ph 11:46 Freddy Naranjo MD is Attending Physician. chase 12:25 Luisa Madera, OLGA is Primary Nurse. me1 13:26 Initial lab(s) drawn, by me, sent to lab. Inserted saline lock: 22 gauge in left tn1 antecubital area, using aseptic technique. 13:27 Basic Metabolic Panel Sent. me1 13:27 CBC with Diff Sent. me1 13:27 LFT's Sent. me1 13:27 NT PRO-BNP Sent. me1 13:27 PT-INR Sent. me1 13:27 Troponin HS Sent. me1 13:27 Lipase Sent. me1 13:35 Patient has correct armband on for positive identification. Call light in reach. me1 Provided Education on: POC. Verbalized understanding. . Client placed on continuous cardiac and pulse oximetry monitoring. NIBP monitoring applied. Pulse ox on. NIBP on. 13:35 No provider procedures requiring assistance completed. me1 14:27 CT Chest, Abdomen, Pelvis - W/Contrast In Process Unspecified. EDMS 16:23 Urine collected: clean catch specimen, clear. me1 17:00 IV discontinued, intact, bleeding controlled, No redness/swelling at site. Pressure tn1 dressing applied. Administered Medications: 13:33 Drug: NS 0.9% IV 500 ml IV at bolus once Route: IV; Rate: bolus; Site: left antecubital;me1 14:18 Follow up: Response: No adverse reaction; IV Status: Completed infusion; IV Intake: me1 500ml 13:33 Drug: NS 0.9% IV 1000 ml IV at 125 ml/hr continuous Route: IV; Rate: 125 ml/hr; Site: [facility] left antecubital; 17:02 Follow up: IV Status: Completed infusion me1 14:18 Drug: morphine IVP or IV 2 mg IVP once over 4 mins Route: IVP; Infused Over: 4 mins; me1 Site: left antecubital; 14:53 Follow up: Pain 6/10 Adult; Response: No adverse reaction; Pain is decreased me1 14:18 Drug: Ondansetron IVP 4 mg IVP once; over 2 minutes Route: IVP; Site: left antecubital; me1 14:52 Follow up: Response: No adverse reaction; Nausea is decreased me1 14:19 Drug: Ketorolac IVP 15 mg IVP once Route: IVP; Site: left antecubital; me1 14:52 Follow up: Pain 6/10 Adult; Response: No adverse reaction; Pain is decreased me1 14:38 Drug: morphine IVP or IV 2 mg IVP once over 4 mins Route: IVP; Infused Over: 4 mins; me1 Site: left antecubital; 14:53 Follow up: Pain 5/10 Adult; Response: No adverse reaction; Pain is decreased me1 16:23 Drug: Decadron - Dexamethasone IVP 10 mg IVP once Route: IVP; Site: left antecubital; me1 16:36 Follow up: Response: No adverse reaction me1 Medication: 13:35 VIS not applicable for this client. me1 Intake: 14:18 IV: 500ml; Total: 500ml. tn1 Outcome: 16:04 Discharge ordered by . chase 17:00 Discharged to home via wheelchair, with family, [facility] 17:00 Condition: stable 17:00 Discharge instructions given to patient, family, Instructed on discharge instructions, follow up and referral plans. medication usage, Demonstrated understanding of instructions, follow-up care, medications, Prescriptions given X 4, 17:01 Patient left the ED. me1 Signatures: Dispatcher [employer] EDMS Freddy Naranjo MD MD cha Rivera, Mary, Reg Reg mr JamesErnestina, RN RN aa5 Griselda García, RN RN ph Luisa Madera, OLGA RN me1 Corrections: (The following items were deleted from the chart) 11:57 11:38 Acuity: ZAFAR 4 ph aa5 13:27 13:27 MAGNESIUM+C.LAB.BRZ drawn and sent. tn1 EDMS 13:35 11:38 Chief complaint: Patient states: R low back/upper hip pain x 2 days, denies me1 trauma ph 15:42 15:30 BP 142 / 78; Pulse 62bpm; Resp 16bpm; Pulse Ox 99% RA; me1 me1
[2023-07-12] MEDS ORDERED: dexAMETHasone 10 MG/ML VIAL ONE (16:16)
[2023-07-12 16:41] LABS: Specific Gravity > 1.030 (1.005-1.030); Urine Bilirubin NEGATIVE (Negative); Urine Blood Negative (Negative); Urine Clarity Clear (Clear); Urine Color Light-Yellow (Yellow); Urine Glucose NEGATIVE (Negative); Urine Ketones NEGATIVE (Negative); Urine Microscopic Reflex YN NO UMIC; Urine Nitrite NEGATIVE (Negative); Urine Protein NEGATIVE (Negative); Urine Urobilinogen Normal (Normal); Urine pH 6.5 (5.0-7.0)
[2023-07-12 17:38] VITALS: TEMP 97.5; O2SAT 99
[2023-07-12 18:01] VITALS: BP 125/64
--- NOTE | 2023-07-16 13:31 | EKG ---
Test Date: 2023-07-12 Test Time: 14:03:19 Configuration Developer: ANSHUL MEASUREMENT RESULTS: Intervals: Rate: 51 W[place]: 156 QRSD: 140 QT: 488 QTc: 449 [place]: P: 74 W[place]: 156 QRS: 55 T: 46 INTERPRETIVE STATEMENTS: Sinus bradycardia Right bundle branch block Abnormal ECG Compared to ECG 09/07/2021 09:10:40 No significant changes Electronically Signed On 07-16-23 13:20:12 CDT by Fred Allen
== END 2023-07-12 17:01 | disposition home or self-care (01) ==
LOC: ER 11:26
DX: S39.82XA Other specified injuries of lower back, initial encounter (principal); R29.91 Unspecified symptoms and signs involving the musculoskeletal system
CPT/HCPCS: 96361; 85025; 80048; 36415; 83735; 85610; 80076; 81003; 84484; 83690; 83880; 71260; 74177; 96375; 96374; 99284; Q9967; J1100; J2405; J7030; 93005